=== PATIENT | male | born 1995 | race Caucasian/White ===

== ENCOUNTER 2018-02-27 09:53 | Observation (INO) | payer OTHER ==
[~2018-02-27] VITALS: Ht 177.8 cm; Wt 99.8 kg
[2018-02-27 10:05] VITALS: BP 164/70
[2018-02-27] MEDS ORDERED: NOHOMEMEDICATIONS (10:15)
[2018-02-27 10:20] LABS: URINE BILIRUBIN NEGATIVE (Negative); URINE BLOOD NEGATIVE (Negative); URINE CLARITY CLEAR; URINE COLOR YELLOW; URINE GLUCOSE-RANDOM NEGATIVE (Negative); URINE KETONES NEGATIVE (Negative); URINE LEUKOCYTES-REFLEX NEGATIVE (Negative); URINE NITRITE-REFLEX NEGATIVE (Negative); URINE PROTEIN NEGATIVE (Negative); URINE UROBILINOGEN 0.2 E.U./dl (0.2-1.0)
[2018-02-27 10:25] LABS: ABSOLUTE EOSINOPHILS 0.1 thou/uL (0.0-0.7); ABSOLUTE LYMPHOCYTES 1.2 thou/uL (0.8-5.3); ABSOLUTE MONOCYTES 0.7 thou/uL (0.0-1.2); BASOPHILS 0.5 %; EOSINOPHILS 1.3 %; HEMATOCRIT 47.3 % (42.0-52.0); HEMOGLOBIN 15.8 gm/dL (14.0-18.0); LYMPHOCYTES 14.8 %; MCH 29.5 pg (26.0-34.0); MCHC 33.4 g/dL (28.0-37.0); MCV 88.5 fL (80.0-100.0); MONOCYTES 8.3 %; NUCLEATED RBCS 0 /100WBC; PLATELET COUNT* 283 thou/uL (150-400); POLYS 75.1 %; RBC 5.34 mil/uL (4.50-6.00); RDW-CV 13.4 % (10.5-14.5)
[2018-02-27 10:32] LABS: CALCIUM 8.7 mg/dL (8.5-10.1); CREATININE 1.1 mg/dL (0.6-1.3); POTASSIUM 3.9 mmol/L (3.5-5.1)
[2018-02-27 10:37] LABS: ALBUMIN 3.8 g/dL (3.4-5.0); TOTAL BILIRUBIN 1.5 mg/dL (<0.1-1.0); TOTAL PROTEIN 7.3 g/dL (6.4-8.2)
[2018-02-27 13:03] VITALS: BP 120/56
[2018-02-27 15:39] VITALS: BP 120/56
[2018-02-27] MEDS ORDERED: NORCO 5-325 TA1 EACH PO (16:24)
[2018-02-27 17:10] VITALS: BP 137/74
[2018-02-27 17:32] VITALS: BP 120/56
[2018-02-28] VITALS: BP 98/40
[2018-02-28 04:00] VITALS: BP 114/64
[2018-02-28 07:45] VITALS: BP 129/61
[2018-02-28 11:10] VITALS: BP 120/56
[2018-02-28 13:51] VITALS: BP 120/56
--- NOTE | 2018-03-01 09:58 | OP ---
[address] [address] OPERATIVE REPORT Name: JESUS GUERRERO Room: [address] [place]#: [id number] Admission: 02/27/18 Attend Phys: Errol Ahumada DO Discharge: 02/28/18 Date of : 89 Report #: [id number] THIS REPORT FOR: //name// CC: Errol Ahumada [facility] physician/PCP DATE OF SERVICE: 02/27/2018 PREOPERATIVE DIAGNOSIS: Acute appendicitis. POSTOPERATIVE DIAGNOSIS: Acute appendicitis. PROCEDURE: Laparoscopic appendectomy. SURGEON: Errol Ahumada DO. MANAGER FAMILY: Dr. Annette Santa. ANESTHESIA: General endotracheal. ESTIMATED BLOOD LOSS: Less than 20 mL. COMPLICATIONS: None. DESCRIPTION OF PROCEDURE: After obtaining proper consents and discussing risks and complications with the patient, he was taken to the operating room, laid in the supine position, administered general anesthesia. He was then prepped and draped in the usual fashion. A timeout was performed. We confirmed the appropriate patient and procedure. Preoperative antibiotics had been given. SCDs were in place. We then made a small supraumbilical skin incision with a #11 scalpel blade. This was carried down through the skin into the subcutaneous tissue using electrocautery for hemostasis. Once the fascia was encountered, it was incised along the midline, grasped and elevated with Leonie clamps and divided further. The peritoneum was then bluntly opened using a hemostat. A finger was placed inside the peritoneal cavity to assure that there were no melissa-incisional adhesions. Next, 2-0 Vicryl sutures were placed in a [id number] fashion to secure the Zac trocar, which was then inserted and insufflation was begun. Once insufflation was complete, full visual inspection of the anterior abdominal organs was performed. This revealed no acute abnormalities. At this point, there was some cloudy fluid in the right lower quadrant, but no evidence of any inflammation at this point. I then placed the patient in Trendelenburg position. A 5 mm trocar was placed under direct vision in the suprapubic position. I was then able to grasp and elevate the cecum and we identified the appendix in a retrocecal position that did appear moderately inflamed. I then placed another 12 mm trocar in the left lower quadrant. I was then able to grasp and elevate the base of the appendix [place] [address] OPERATIVE REPORT Name: JESUS GUERRERO Room: [address] Tamera Herrera#: [id number] Admission: 02/27/18 Attend Phys: Errol Ahumada DO Discharge: 02/28/18 Date of : [birth year] Report #: [id number] away from the cecum. We then opened an avascular window at the base of the appendix to allow for placement of an Endo-ZELDA, which was then inserted and an Endo-ZELDA 45 mm purple load was placed and we divided the appendix. I then sequentially clamped and divided the mesoappendix using the Harmonic scalpel. Once this was complete, the appendix was placed into an Endopouch. We then checked the staple line as well as the mesoappendix for any leak or bleeding, there was none identified. The 12 mm left lower quadrant trocar was then removed and a PMI closure device was used to close the fascia with 0 Vicryl suture. The subcutaneous tissues of all the incisions were injected with 0.5% Marcaine without epinephrine. The appendix was removed through the umbilical incision. We then closed the umbilical fascia after the insufflation was stopped and the remaining trocar was removed. We closed the umbilical fascia using the 2 previously placed 0 Vicryl sutures plus 2 additional 0 Vicryl sutures. Skin incisions were all closed using 4-0 Monocryl subcuticular stitches. Mastisol, Steri-Strips, sterile OpSite and pressure dressings were placed. The patient tolerated the procedure well, was awakened in the operating room and transported to recovery room in stable condition. <ELECTRONICALLY SIGNED> By: Errol Ahumada DO 03/01/18 [id number] Ahumada DO /nt
--- NOTE | 2018-03-01 16:07 | PATH ---
[address] [address] PATHOLOGY RPT PROCEDURE Name: JESUS SHANKAR Room: [address] M.RCelso#: [id number] Admission: 02/27/18 Date of : [birth year] Discharge: 02/28/18 Report #: [id number] Path Case #: [id number] [facility] Accession Number: [id number] . 01 Material submitted: . APPENDIX . 01 Clinical history: . Acute appendicitis . 02 Diagnosis: Appendix: - Chronic and acute appendicitis, periappendicitis, and serositis. (MARY JO:pit 03/01/2018) QTP/03/01/2018 . 02 Electronically signed: . Rakan Bowman MD, Pathologist NPI- [id number] . 01 Gross description: . The specimen is received in formalin, labeled "Jesus Shankar, appendix". Received is a vermiform appendix measuring 5.8 cm in length by up to 1.0 cm in diameter with a moderate amount of attached mesoappendix. The serosal surface is pink-negorn in appearance with moderate vasculature and overlying exudate near the distal tip. The proximal margin is inked. Sectioning reveals a pinpoint to slightly patent lumen filled with fecal material. No distinct nodules or lesions are noted grossly. The specimen is submitted representatively in cassettes A1 and A2, with the proximal margin and bisected tip submitted in cassette A1. (CAA; 02/28/2018) QAC/QAC . 02 Pathologist provided ICD-10: K35.80, K36 . 02 CPT . 683048 Specimen Comment: A courtesy copy of this report has been sent to Specimen Comment: [phone]. Specimen Comment: Report sent to Performed at: [address] [id number] MD Rip Higgins MD Phone: [phone] Performed at: [address] [id number] [address] [address] PATHOLOGY RPT PROCEDURE Name: JESUS SHANKAR Room: [address] Tamera Herrera#: [id number] Admission: 02/27/18 Date of : [birth year] Discharge: 02/28/18 Report #: [id number] Path Case #: [id number] MD Rakan Bowman MD Phone: [phone]
== END 2018-02-28 12:00 | disposition home or self-care (01) ==
LOC: M.ERS 09:53 → M.ORTHSURG 12:40 → M.TBA-ER 12:40 → M.ORTHSURG 15:26
PROVIDERS: Personal Emergency Response Attendant; ADMIT Surgery
DX: K35.80 Unspecified acute appendicitis (principal); K59.00 Constipation, unspecified; Z72.89 Other problems related to lifestyle; Z88.0 Allergy status to penicillin; Z79.899 Other long term (current) drug therapy